=== PATIENT | female | born 1950 | race African-American/Black ===

== ENCOUNTER 2020-01-14 07:00 | Inpatient (IN) | payer MEDICARE ==
[2020-01-14] MEDS ORDERED: ACETAMINOPHEN 325 MG TABLET PO ONE (07:19)
[2020-01-14 07:34] LABS: ABSOLUTE LYMPHOCYTES (AUTO) 0.8 10^3/uL (0.5-4.7); ABSOLUTE MONOCYTES (AUTO) 0.2 10^3/uL (0.1-1.4); ABSOLUTE NEUT (AUTO) 5.8 10^3/uL (1.7-8.2); BASOPHILS % (AUTO) 0.3 % (0-2); EOSINOPHILS % (AUTO) 0.1 % (0-6); HEMATOCRIT 36.2 % (36.0-47.0); HEMOGLOBIN 12.2 g/dL (12.0-15.5); LYMPHOCYTES % (AUTO) 11.6 % (13-45); MEAN CORPUSCULAR HEMOGLOBIN 29.5 pg (27.0-33.4); MEAN CORPUSCULAR HGB CONC 33.9 g/dL (32.0-36.0); MEAN CORPUSCULAR VOLUME 87 fl (80-97); MONOCYTES % (AUTO) 3.6 % (3-13); PLATELET COUNT 280 10^3/uL (150-450); RED BLOOD COUNT 4.15 10^6/uL (3.72-5.28); RED CELL DISTRIBUTION WIDTH 14.6 % (11.5-14.0); SEGMENTED NEUTROPHILS % (AUTO) 84.4 % (42-78); TOTAL CELLS COUNTED % (AUTO) 100 %; VENOUS BLOOD BASE EXCESS -1.3 mmol/L; VENOUS BLOOD HCO3 22.3 mmol/L (20-32); VENOUS BLOOD PCO2 33.8 mmHg (35-63); VENOUS BLOOD PH 7.44 (7.30-7.42); WHITE BLOOD COUNT 6.9 10^3/uL (4.0-10.5)
[2020-01-14 07:39] LABS: INTERNATIONAL RATION (INR) 1.03; PROTHROMBIN TIME 13.7 SEC (11.4-15.4)
[2020-01-14 07:53] LABS: ALBUMIN 4.1 g/dL (3.5-5.0); ALKALINE PHOSPHATASE 96 U/L (38-126); ANION GAP 14 (5-19); ASPARTATE AMINO TRANSFERASE 60 U/L (14-36); BILIRUBIN,DIRECT 0.6 mg/dL (0.0-0.4); BILIRUBIN,TOTAL 1.5 mg/dL (0.2-1.3); BLOOD UREA NITROGEN 32 mg/dL (7-20); CALCIUM 9.2 mg/dL (8.4-10.2); CARBON DIOXIDE 26 mmol/L (22-30); CHLORIDE 103 mmol/L (98-107); GLUCOSE 101 mg/dL (75-110); POTASSIUM 4.3 mmol/L (3.6-5.0); TOTAL PROTEIN 7.7 g/dL (6.3-8.2)
--- NOTE | 2020-01-14 08:09 | RADIOLOGY REPORT (SQ) ---
EXAM DESCRIPTION: CHEST SINGLE VIEW IMAGES COMPLETED DATE/TIME: 01/14/2020 7:36 am REASON FOR STUDY: sob fever COMPARISON: Two-view chest 06/06/2013 EXAM PARAMETERS: NUMBER OF VIEWS: One view. TECHNIQUE: Single frontal radiographic view of the chest acquired. RADIATION DOSE: NA LIMITATIONS: None. FINDINGS: LUNGS AND PLEURA: Diffuse left basilar airspace disease worrisome for pneumonia. Right lung grossly clear. No pleural effusion. No pneumothorax. MEDIASTINUM AND HILAR STRUCTURES: No masses. Contour normal. HEART AND VASCULAR STRUCTURES: Heart normal in size. Normal vasculature. BONES: No acute findings. HARDWARE: None in the chest. OTHER: No other significant finding. IMPRESSION: Patchy left basilar airspace disease worrisome for pneumonia TECHNICAL DOCUMENTATION: JOB ID: [id number] 2010 [employer]- All Rights Reserved Reading location - IP/workstation name: [email or web address]
--- NOTE | 2020-01-14 08:12 | ER Document Report ---
ED General - General Chief Complaint: Shortness Of Breath Stated Complaint: SHORTNESS OF BREATH Time Seen by Provider: 01/14/20 07:34 Primary Care Provider: CLEOPATRA BERMUDEZ FNP [Primary Care Provider] - Follow up as needed TRAVEL OUTSIDE OF THE [place] IN LAST 30 DAYS: No - HPI Notes: Patient is a 69-year-old female presents to the emergency department for evaluation of shortness of breath. The patient states that last week she was diagnosed with a left otitis media. She was started on Augmentin. She took 3 doses and did not feel any better, so she was seen again and started on Zithromax and steroids. Patient states her pain is persisted. She is had some cough. She has had some shortness of breath. Her cough has been largely unproductive. She complains of left ear pain, generalized weakness, but no other focal pain. She states she did have some diarrhea yesterday. No anosmia. - Related Data Allergies/Adverse Reactions: No Known Allergies Allergy (Verified 06/05/13 15:34) Home Medications: Zithromax, prednisone, Zofran. Patient is supposed to be taking atenolol, has not taken it lately. Past Medical History - General Information source: Patient - Social History Smoking Status: Never Smoker Frequency of alcohol use: None Drug Abuse: None Family History: Reviewed & Not Pertinent - Past Medical History Cardiac Medical History: Reports: Hx Hypercholesterolemia, Hx Hypertension Past Surgical History: Reports: None - Immunizations Hx Diphtheria, Pertussis, Tetanus Vaccination: Yes Review of Systems - Review of Systems Constitutional: See HPI EENT: See HPI Cardiovascular: No symptoms reported Respiratory: See HPI Gastrointestinal: See HPI Genitourinary: No symptoms reported Musculoskeletal: No symptoms reported Skin: No symptoms reported Neurological/Psychological: No symptoms reported Physical Exam - Vital signs Vitals: Temp 101.3 F H 01/14/20 07:00 - Notes Notes: This is a 69-year-old female who appears her stated age, in a moderate amount of distress. She is tachypneic, warm to the touch. Vital signs reviewed, please refer to chart. Head is normocephalic, atraumatic. Pupils equal round, reactive to light. Bilateral TMs are noted to be mildly erythematous without large effusion. Neck is supple without meningismus. Heart is regular rate and rhythm. Lungs reveal crackles in the bases, no wheezes or rhonchi appreciated. Abdomen is soft, nontender, normoactive bowel sounds throughout. Extremities without cyanosis, clubbing. Posterior calves are nontender. Peripheral pulses are equal. Skin is hot and dry. Patient is awake, alert, neurological exam is nonfocal. Course - Re-evaluation Re-evalutation: 01/14/20 08:12 Patient presents to the emergency department for evaluation. She is found to be febrile as well as hypoxic, with an O2 sat of 85% on room air. She is placed on oxygen per nasal cannula. IV is established, blood work is obtained. Chest x- ray ordered. I also ordered IV fluids at a sepsis criteria rate. Patient was given Tylenol for her fever. She is currently stable, we will continue to m onitor. - Vital Signs Vital signs: Temp Pulse Resp BP Pulse Ox 101.3 F H 24 H 172/57 H 97 01/14/20 07:04 01/14/20 08:01 01/14/20 08:01 01/14/20 08:01 - Laboratory Result Diagrams: 01/14/20 07:15 01/14/20 07:15 Laboratory results interpreted by me: 01/14/20 01/14/20 01/14/20 07:15 07:15 07:15 RDW 14.6 H Lymph % (Auto) 11.6 L Seg Neutrophils % 84.4 H VBG pH 7.44 H VBG pCO2 33.8 L BUN 32 H Creatinine 1.34 H Est GFR ( Amer) 47 L Est GFR (MDRD) Non-Af 39 L Total Bilirubin 1.5 H Direct Bilirubin 0.6 H AST 60 H Urine Protein Urine Ketones Urine Blood Leukocyte Esterase Rfl 01/14/20 07:48 RDW Lymph % (Auto) Seg Neutrophils % VBG pH VBG pCO2 BUN Creatinine Est GFR ( Amer) Est GFR (MDRD) Non-Af Total Bilirubin Direct Bilirubin AST Urine Protein 100 H Urine Ketones 20 H Urine Blood MODERATE H Leukocyte Esterase Rfl SMALL H - Diagnostic Test Radiology reviewed: Image reviewed Discharge - Discharge Clinical Impression: Person under investigation for COVID-19 Fever Qualifiers: Encounter type: initial encounter Left lower lobe pneumonia Qualifiers: Pneumonia type: due to unspecified organism Qualified Code(s): J18.9 - Pneumonia, unspecified organism Condition: Stable Disposition: ADMITTED INPATIENT Admitting Provider: Wali (Hospitalist) - Kristina Dewitt NP Unit Admitted: IMCU Referrals: CLEOPATRA BERMUDEZ FNP [Primary Care Provider] - Follow up as needed
[2020-01-14 08:33] LABS: APPEARANCE,URINE CLOUDY; BILIRUBIN,URINE NEGATIVE (NEGATIVE); COLOR,URINE YELLOW; GLUCOSE, URINE NEGATIVE (NEGATIVE); KETONES,URINE 20 mg/dL (NEGATIVE); PROTEIN,URINE 100 mg/dL (NEGATIVE); URINE SPECIFIC GRAVITY 1.018; UROBILINOGEN,URINE NEGATIVE mg/dL (<2.0)
[2020-01-14] MEDS: RINGERS SOLUTION,LACTATED 1,000 ML IV PRN ×2 (08:40→09:45)
[2020-01-14] MEDS ORDERED: LEVOFLOXACIN 750 MG/D5W RTU 750 MG/150 ML RTUPB IV ONE (08:58)
[2020-01-14] MEDS ORDERED: ALBUTEROL SULFATE 0.083% NEB 2.5 MG/3 ML AMPUL NEB PRN (09:49)
[2020-01-14] MEDS ORDERED: ENOXAPARIN SODIUM INJ 40 MG/0.4 ML DISP.SYRIN SUBCUT SCH (10:00)
[2020-01-14 10:23] LABS: A TYPE INFLUENZA AG NEGATIVE (NEGATIVE); B INFLUENZA AG NEGATIVE (NEGATIVE)
[2020-01-14] MEDS: ASPIRIN 81 MG TABLET, ENT COATED PO SCH (10:31)
[2020-01-14] MEDS: GUAIFENESIN 600 MG TABLET.SA PO SCH ×2 (10:31→21:18)
[2020-01-14] MEDS: ASCORBIC ACID 500 MG TABLET PO SCH ×2 (10:31→17:21)
[2020-01-14] MEDS: CHOLECALCIFEROL (D3) 1,000 UNIT (25 MCG) TABLET PO SCH (10:32)
[2020-01-14] MEDS: FAMOTIDINE 20 MG TABLET PO SCH ×2 (10:32→21:18)
[2020-01-14] MEDS: ZINC SULFATE 220 MG CAPSULE PO SCH (10:32)
[2020-01-14 12:30] LABS: INTERNATIONAL RATION (INR) 1.08; PROTHROMBIN TIME 14.2 SEC (11.4-15.4)
[2020-01-14 12:33] LABS: D-DIMER 1.01 ug/mL (0.00-0.50)
[2020-01-14 13:00] LABS: C-REACTIVE PROTEIN 184.4 mg/L (<10.0)
[2020-01-14] MEDS ORDERED: HYDRALAZINE HCL 10 MG TABLET PO PRN (15:41)
--- NOTE | 2020-01-14 15:46 | PDOC H&P ---
History of Present Illness Admission Date/PCP: 01/14/20 09:39 SUSANNA RICHMOND Patient complains of: dyspnea History of Present Illness: NIRMALA STEINBERG is a 69 year old female with a past medical history significant for hypertension, hyperlipidemia, and obesity who presented to the emergency department today via EMS for complaint of sudden onset shortness of breath. Per EMS, the patient was found to be hypoxic with an oxygen saturation in the mid 70s on room air. Patient was recently seen by her primary care provider for initial complaint of left ear pain (now resolved). She was initially placed on amoxicillin but then changed to azithromycin after pain persisted. She has completed a full Z-Kvng. Patient denies fevers at home. She does admit to fatigue but otherwise stated that she felt well until last night when she had a sudden onset of shortness of breath. Evaluation in the emergency department revealed (101.3), hypertension, tachypnea, and hypoxia. CBC unremarkable, chemistry revealed mild acute kidney injury and mildly elevated LFTs, urinalysis revealed proteinuria but without evidence of UTI. Influenza negative. D-dimer elevated 1.01, ferritin 299, CRP 184. Chest x-ray demonstrated patchy left basilar airspace disease worrisome for pneumonia. Patient was provided Tylenol LR bolus, and Levaquin. She is referred to the hospitalist service for further evaluation and management of the above-stated complaints and findings. Past Medical History Cardiac Medical History: Reports: Hyperlipidema, Hypertension Denies: Coronary Artery Disease, Myocardial Infarction Pulmonary Medical History: Reports: None EENT Medical History: Reports: None Neurological Medical History: Reports: None Endocrine Medical History: Reports: Obesity Denies: Diabetes Mellitus Type 2, Hypothyroidism Renal/ Medical History: Reports: None Malignancy Medical History: Reports: None GI Medical History: Reports: None Musculoskeltal Medical History: Reports: None Skin Medical History: Reports: None Psychiatric Medical History: Reports: None Denies: Depression Traumatic Medical History: Reports: None Hematology: Reports: None Infectious Medical History: Reports: None Past Surgical History Past Surgical History: Reports: None Social History Information Source: Patient Lives with: Family Smoking Status: Never Smoker Frequency of Alcohol Use: None Hx Recreational Drug Use: No Drugs: None Hx Prescription Drug Abuse: No - Advance Directive Resuscitation Status: Full Code Family History Family History: Reviewed & Not Pertinent Parental Family History Reviewed: Yes Children Family History Reviewed: Yes Sibling(s) Family History Reviewed.: Yes Medication/Allergy Home Medications: Atenolol [Tenormin 50 mg Tablet] 50 mg PO DAILY 03/07/13 Hydrochlorothiazide 25 each PO DAILY 03/07/13 Amoxicillin/Potassium Clav [Augmentin 875-125 Tablet] 1 tab PO Q12 01/14/20 Azithromycin [Zithromax 250 mg Tablet] 250 mg PO ASDIR PRN 01/14/20 Ondansetron [Zofran Odt 4 mg Tablet] 4 mg PO Q8 01/14/20 Prednisone [Deltasone 20 mg Tablet] 20 mg PO ASDIR PRN 01/14/20 Rosuvastatin Calcium [Crestor] 20 mg PO DAILY 01/14/20 Allergies/Adverse Reactions: No Known Allergies Allergy (Verified 06/05/13 15:34) Review of Systems Constitutional: PRESENT: fatigue. ABSENT: chills, fever(s), headache(s), weight gain, weight loss Eyes: ABSENT: visual disturbances Ears: PRESENT: as per HPI. ABSENT: hearing changes Cardiovascular: ABSENT: chest pain, dyspnea on exertion, edema, orthropnea, palpitations Respiratory: PRESENT: cough - Nonproductive, dyspnea. ABSENT: hemoptysis Gastrointestinal: PRESENT: diarrhea. ABSENT: abdominal pain, constipation, hematemesis, hematochezia, nausea, vomiting Genitourinary: ABSENT: dysuria, hematuria Musculoskeletal: ABSENT: joint swelling Integumentary: ABSENT: rash, wounds Neurological: ABSENT: abnormal gait, abnormal speech, confusion, dizziness, focal weakness, syncope Psychiatric: ABSENT: anxiety, depression, homidical ideation, suicidal ideation Endocrine: ABSENT: cold intolerance, heat intolerance, polydipsia, polyuria Hematologic/Lymphatic: ABSENT: easy bleeding, easy bruising Physical Exam Vital Signs: Temp Pulse Resp BP Pulse Ox 98.2 F 75 16 161/64 H 97 01/14/20 11:49 01/14/20 12:19 01/14/20 12:19 01/14/20 11:49 01/14/20 12:19 Pulse Oximeter Continuous Start: 01/14/20 09:49 Freq: RTQ4 Status: Active Protocol: Document 01/14/20 12:00 LDA (Rec: 01/14/20 12:58 LDA [id number]) Pulse Oximetry Assessment Oxygen Saturation (92-100) 97 Oxygen Flow Rate (L/min) 2 Oxygen Delivery Method Nasal Cannula Fraction of Inspired Oxygen (FIO2) 28 Equipment Usage Initial Set Up Continuous Pulse Oximeter 24 Hour Charge Charge Now Continuous SpO2 Machine # 2 Intake & Output 01/13/20 01/14/20 01/15/20 06:59 06:59 06:59 Intake Total 2150 Balance 2150 Weight 66.6 kg General appearance: PRESENT: no acute distress, cooperative, well-developed, well-nourished - Overweight, other - Acutely ill-appearing Head exam: PRESENT: atraumatic, normocephalic Eye exam: PRESENT: conjunctiva pink, EOMI, PERRLA. ABSENT: scleral icterus Mouth exam: PRESENT: moist, tongue midline Respiratory exam: PRESENT: rhonchi - Left lower lung field, symmetrical, unlabored, other - Supplemental oxygen via nasal cannula. ABSENT: rales, wheezes Cardiovascular exam: PRESENT: RRR, +S1, +S2. ABSENT: diastolic murmur, rubs, systolic murmur Pulses: PRESENT: normal dorsalis pedis pul Vascular exam: PRESENT: normal capillary refill GI/Abdominal exam: PRESENT: normal bowel sounds, soft. ABSENT: distended, guarding, mass, organolmegaly, rebound, tenderness Rectal exam: PRESENT: deferred Extremities exam: PRESENT: full ROM. ABSENT: calf tenderness, clubbing, pedal edema Musculoskeletal exam: PRESENT: ambulatory Neurological exam: PRESENT: alert, awake, oriented to person, oriented to place, oriented to time, oriented to situation, CN II-XII grossly intact. ABSENT: motor sensory deficit Psychiatric exam: PRESENT: appropriate affect, normal mood. ABSENT: homicidal ideation, suicidal ideation Skin exam: PRESENT: dry, intact, warm. ABSENT: cyanosis, rash Results Laboratory Results: 01/14/20 07:15 01/14/20 07:15 01/14/20 01/14/20 01/14/20 07:15 07:15 07:15 WBC 6.9 RBC 4.15 Hgb 12.2 Hct 36.2 MCV 87 MCH 29.5 MCHC 33.9 RDW 14.6 H Plt Count 280 Seg Neutrophils % 84.4 H VBG pH 7.44 H VBG pCO2 33.8 L VBG HCO3 22.3 VBG Base Excess -1.3 Sodium 143.1 Potassium 4.3 Chloride 103 Carbon Dioxide 26 Anion Gap 14 BUN 32 H Creatinine 1.34 H Est GFR ( Amer) 47 L Glucose 101 Lactic Acid Calcium 9.2 Ferritin Total Bilirubin 1.5 H AST 60 H Alkaline Phosphatase 96 C-Reactive Protein Total Protein 7.7 Albumin 4.1 Urine Color Urine Appearance Urine pH Ur Specific [place] Urine Protein Urine Glucose (UA) Urine Ketones Urine Blood Urine RBC (Auto) 01/14/20 01/14/20 01/14/20 07:15 07:48 10:13 WBC RBC Hgb Hct MCV MCH MCHC RDW Plt Count Seg Neutrophils % VBG pH VBG pCO2 VBG HCO3 VBG Base Excess Sodium Potassium Chloride Carbon Dioxide Anion Gap BUN Creatinine Est GFR ( Amer) Glucose Lactic Acid 1.2 1.0 Calcium Ferritin Total Bilirubin AST Alkaline Phosphatase C-Reactive Protein Total Protein Albumin Urine Color YELLOW Urine Appearance CLOUDY Urine pH 5.0 Ur Specific [place] 1.018 Urine Protein 100 H Urine Glucose (UA) NEGATIVE Urine Ketones 20 H Urine Blood MODERATE H Urine RBC (Auto) 7 01/14/20 01/14/20 11:58 14:20 WBC RBC Hgb Hct MCV MCH MCHC RDW Plt Count Seg Neutrophils % VBG pH VBG pCO2 VBG HCO3 VBG Base Excess Sodium Potassium Chloride Carbon Dioxide Anion Gap BUN Creatinine Est GFR ( Amer) Glucose Lactic Acid 1.1 Calcium Ferritin 299.00 H Total Bilirubin AST Alkaline Phosphatase C-Reactive Protein 184.4 H Total Protein Albumin Urine Color Urine Appearance Urine pH Ur Specific [place] Urine Protein Urine Glucose (UA) Urine Ketones Urine Blood Urine RBC (Auto) Impressions: Chest X-Ray 01/14/20 07:18 IMPRESSION: Patchy left basilar airspace disease worrisome for pneumonia Assessment and Plan - Diagnosis (1) Left lower lobe pneumonia Qualifiers: Pneumonia type: due to unspecified organism Qualified Code(s): J18.9 - Pneumonia, unspecified organism Is this a current diagnosis for this admission?: Yes Plan: Blood cultures pending. Sputum cultures pending Influenza negative. Covid pending. Patient is provided supplemental oxygen as needed maintain saturations greater than 89%. Patient is empirically placed on Levaquin. Recent completed course of azithromycin. Scheduled and as needed nebulizer treatments. He is placed on Robitussin as needed. Pulmonary toilet is encouraged with incentive spirometer, flutter valve, early ambulation. (2) Person under investigation for COVID-19 Is this a current diagnosis for this admission?: Yes Plan: We will obtain COVID testing. Influenza negative. D-dimer, ferritin, and CRP are negative Placed on full dose Lovenox following d-dimer results. Provide supplemental oxygen as needed maintain saturations greater than 89%. As needed nebulizer treatments. Completed Z-Kvng as outpatient prior to admission. Consider remdesivir or convalescent plasma pending Covid testing. Zinc, vitamin D, vitamin C, and melatonin supplementation. Encourage pulmonary toilet. Isolation precautions. (3) Acute respiratory failure with hypoxia Is this a current diagnosis for this admission?: Yes Plan: Secondary to #1 & 2 Management as above. (4) Hypertension Is this a current diagnosis for this admission?: Yes Plan: Continue home dose antihypertensives. PO Hydralazine as needed for BP control. Cardiac diet. (5) Hyperlipidemia Is this a current diagnosis for this admission?: Yes Plan: Home dose statin Cardiac diet. - Time Time Spent with patient: 35 or more minutes Medications reviewed and adjusted accordingly: Yes Anticipated Discharge Disposition: Home, Self Care Anticipated Discharge Timeframe: within 72 hours
--- NOTE | 2020-01-14 16:13 | EKG REPORT ---
SEVERITY:- ABNORMAL ECG - SINUS RHYTHM LEFT VENTRICULAR HYPERTROPHY : Confirmed by: Eric Ricketts MD 14-Jan-2020 16:13:15
[2020-01-14] MEDS: ATORVASTATIN CALCIUM 40 MG TABLET PO SCH (21:18)
[2020-01-14] MEDS: ENOXAPARIN SODIUM INJ 80 MG/0.8 ML DISP.SYRIN SUBCUT SCH (21:18)
[2020-01-14] MEDS: ACETAMINOPHEN 325 MG TABLET PO PRN (23:14)
[2020-01-15 09:20] LABS: HEMATOCRIT 38.6 % (36.0-47.0); HEMOGLOBIN 13.2 g/dL (12.0-15.5); MEAN CORPUSCULAR HEMOGLOBIN 29.7 pg (27.0-33.4); MEAN CORPUSCULAR HGB CONC 34.2 g/dL (32.0-36.0); MEAN CORPUSCULAR VOLUME 87 fl (80-97); PLATELET COUNT 253 10^3/uL (150-450); RED BLOOD COUNT 4.45 10^6/uL (3.72-5.28); RED CELL DISTRIBUTION WIDTH 14.5 % (11.5-14.0); WHITE BLOOD COUNT 10.2 10^3/uL (4.0-10.5)
[2020-01-15 09:26] LABS: ANION GAP 14 (5-19); BLOOD UREA NITROGEN 21 mg/dL (7-20); CALCIUM 9.2 mg/dL (8.4-10.2); CARBON DIOXIDE 28 mmol/L (22-30); CHLORIDE 102 mmol/L (98-107); GLUCOSE 96 mg/dL (75-110); POTASSIUM 3.8 mmol/L (3.6-5.0)
[2020-01-15] MEDS ORDERED: (PENDING PHARMACY ID) (Rosuvastatin Calcium [Crestor] 20 MG) PO SCH (10:00)
[2020-01-15] MEDS: ASPIRIN 81 MG TABLET, ENT COATED PO SCH (10:32)
[2020-01-15] MEDS: ENOXAPARIN SODIUM INJ 80 MG/0.8 ML DISP.SYRIN SUBCUT SCH ×2 (10:32→21:06)
[2020-01-15] MEDS: GUAIFENESIN 600 MG TABLET.SA PO SCH ×2 (10:32→21:06)
[2020-01-15] MEDS: HYDROCHLOROTHIAZIDE 25 MG TABLET PO SCH (10:32)
[2020-01-15] MEDS: CHOLECALCIFEROL (D3) 1,000 UNIT (25 MCG) TABLET PO SCH (10:32)
[2020-01-15] MEDS: ATENOLOL 50 MG TABLET PO SCH (10:32)
[2020-01-15] MEDS: FAMOTIDINE 20 MG TABLET PO SCH ×2 (10:32→21:06)
[2020-01-15] MEDS: ZINC SULFATE 220 MG CAPSULE PO SCH (10:32)
[2020-01-15] MEDS: ASCORBIC ACID 500 MG TABLET PO SCH ×2 (10:32→17:14)
[2020-01-15] MEDS: LEVOFLOXACIN 750 MG TABLET PO SCH (10:33)
[2020-01-15] MEDS ORDERED: GUAIFENESIN/D-METHORPHAN (200-20 MG) SYRUP 10 ML PO PRN (12:15)
--- NOTE | 2020-01-15 12:16 | PDOC PROGRESS REPORT ---
Subjective Progress Note for:: 01/15/20 Subjective:: NIRMALA STEINBERG is a 69 year old female with a past medical history significant for hypertension, hyperlipidemia, and obesity who was admitted 01/14/2020 with acute respiratory failure with hypoxia secondary to left lower lobe pneumonia and suspected COVID-19. Patient was seen on morning rounds. She is found resting in bed, comfortably, on supplemental oxygen at 3 L/min; she is not home O2 dependent. She was assisted up to the bedside commode and found to become severely dyspneic with a respiratory rate increasing from 18 to mid 30s with a desaturation from 97% to 88 a productive cough. She denies pleuritic chest pain. T-max 102.9/24 hours. She otherwise denies chest pain, palpitations, abdominal pain, nausea and vomiting. She has had frequent loose stools. She has no other questions or concerns at this time. No concerns per nursing. Reason For Visit: PNEUMONIA Physical Exam Vital Signs: Temp Pulse Resp BP Pulse Ox 100.6 F H 72 16 121/65 97 01/15/20 11:18 01/15/20 11:18 01/15/20 11:18 01/15/20 11:18 01/15/20 11:18 Pulse Oximeter Continuous Start: 01/14/20 09:49 Freq: RTQ4 Status: Active Protocol: Document 01/15/20 11:05 [facility] (Rec: 01/15/20 11:05 [facility] [email or web address]) Pulse Oximetry Assessment Oxygen Saturation (92-100) 96 Oxygen Flow Rate (L/min) 3 Oxygen Delivery Method Nasal Cannula Equipment Usage Equipment in Use Continuous SpO2 Machine # 2 Intake & Output 01/14/20 01/15/20 01/16/20 06:59 06:59 06:59 Intake Total 2150 Balance 2150 Weight 68 kg General appearance: PRESENT: no acute distress, cooperative, well-developed, well-nourished, other - Acutely ill-appearing Head exam: PRESENT: atraumatic, normocephalic Eye exam: PRESENT: conjunctiva pink, EOMI, PERRLA. ABSENT: scleral icterus Mouth exam: PRESENT: moist, tongue midline Respiratory exam: PRESENT: rhonchi, symmetrical, tachypnea, unlabored, other - Supplemental oxygen by nasal cannula. ABSENT: rales, wheezes Cardiovascular exam: PRESENT: RRR. ABSENT: diastolic murmur, rubs, systolic murmur Vascular exam: PRESENT: normal capillary refill Extremities exam: PRESENT: full ROM. ABSENT: calf tenderness, clubbing, pedal edema Musculoskeletal exam: PRESENT: ambulatory Neurological exam: PRESENT: alert, awake, oriented to person, oriented to place, oriented to time, oriented to situation, CN II-XII grossly intact. ABSENT: motor sensory deficit Psychiatric exam: PRESENT: appropriate affect, normal mood. ABSENT: homicidal ideation, suicidal ideation Skin exam: PRESENT: dry, intact, warm. ABSENT: cyanosis, rash Results Laboratory Results: 01/15/20 08:49 01/15/20 08:49 01/14/20 01/14/20 01/15/20 11:58 14:20 08:49 WBC 10.2 RBC 4.45 Hgb 13.2 Hct 38.6 MCV 87 MCH 29.7 MCHC 34.2 RDW 14.5 H Plt Count 253 Sodium Potassium Chloride Carbon Dioxide Anion Gap BUN Creatinine Est GFR ( Amer) Glucose Lactic Acid 1.1 Calcium Ferritin 299.00 H C-Reactive Protein 184.4 H 01/15/20 08:49 WBC RBC Hgb Hct MCV MCH MCHC RDW Plt Count Sodium 143.5 Potassium 3.8 Chloride 102 Carbon Dioxide 28 Anion Gap 14 BUN 21 H Creatinine 0.93 Est GFR ( Amer) > 60 Glucose 96 Lactic Acid Calcium 9.2 Ferritin C-Reactive Protein Impressions: Chest X-Ray 01/14/20 07:18 IMPRESSION: Patchy left basilar airspace disease worrisome for pneumonia Assessment and Plan - Diagnosis (1) Left lower lobe pneumonia Qualifiers: Pneumonia type: due to unspecified organism Qualified Code(s): J18.9 - Pneumonia, unspecified organism Is this a current diagnosis for this admission?: Yes Plan: Blood cultures pending. Sputum cultures pending Influenza negative. Covid pending. Patient is provided supplemental oxygen as needed maintain saturations greater than 89%. Patient is empirically placed on Levaquin. Recently completed course of azithromycin. Scheduled and as needed nebulizer treatments. She is placed on Robitussin as needed. Pulmonary toilet is encouraged with incentive spirometer, flutter valve, early ambulation. (2) Person under investigation for COVID-19 Is this a current diagnosis for this admission?: Yes Plan: We will obtain COVID testing. Influenza negative. D-dimer, ferritin, and CRP are negative Placed on full dose Lovenox following d-dimer results. Provide supplemental oxygen as needed maintain saturations greater than 89%. As needed nebulizer treatments. Completed Z-Kvng as outpatient prior to admission. Consider remdesivir or convalescent plasma pending Covid testing. Zinc, vitamin D, vitamin C, and melatonin supplementation. Encourage pulmonary toilet. Isolation precautions. (3) Acute respiratory failure with hypoxia Is this a current diagnosis for this admission?: Yes Plan: Secondary to #1 & 2 Management as above. (4) Hypertension Is this a current diagnosis for this admission?: Yes Plan: Continue home dose antihypertensives. PO Hydralazine as needed for BP control. Cardiac diet. (5) Hyperlipidemia Is this a current diagnosis for this admission?: Yes Plan: Home dose statin Cardiac diet. - Time Time Spent with patient: 25-34 minutes Medications reviewed and adjusted accordingly: Yes Anticipated Discharge Disposition: Home, Self Care Anticipated Discharge Timeframe: >72 hrs
[2020-01-15] MEDS: ALBUTEROL SULFATE 0.083% NEB 2.5 MG/3 ML AMPUL NEB SCH ×2 (13:45→20:59)
[2020-01-15] MEDS: ATORVASTATIN CALCIUM 40 MG TABLET PO SCH (21:06)
[2020-01-16] MEDS: ALBUTEROL SULFATE 0.083% NEB 2.5 MG/3 ML AMPUL NEB SCH ×4 (01:57→20:24)
[2020-01-16 09:30] LABS: HEMATOCRIT 39.2 % (36.0-47.0); HEMOGLOBIN 13.2 g/dL (12.0-15.5); MEAN CORPUSCULAR HEMOGLOBIN 29.6 pg (27.0-33.4); MEAN CORPUSCULAR HGB CONC 33.6 g/dL (32.0-36.0); MEAN CORPUSCULAR VOLUME 88 fl (80-97); PLATELET COUNT 258 10^3/uL (150-450); RED BLOOD COUNT 4.47 10^6/uL (3.72-5.28); RED CELL DISTRIBUTION WIDTH 14.8 % (11.5-14.0); WHITE BLOOD COUNT 7.4 10^3/uL (4.0-10.5)
[2020-01-16 09:45] LABS: ANION GAP 13 (5-19); BLOOD UREA NITROGEN 23 mg/dL (7-20); CALCIUM 9.2 mg/dL (8.4-10.2); CARBON DIOXIDE 25 mmol/L (22-30); CHLORIDE 103 mmol/L (98-107); GLUCOSE 75 mg/dL (75-110); POTASSIUM 4.1 mmol/L (3.6-5.0)
[2020-01-16] MEDS: ENOXAPARIN SODIUM INJ 80 MG/0.8 ML DISP.SYRIN SUBCUT SCH ×2 (10:40→21:27)
[2020-01-16] MEDS: ZINC SULFATE 220 MG CAPSULE PO SCH (10:40)
[2020-01-16] MEDS: GUAIFENESIN 600 MG TABLET.SA PO SCH ×3 (10:40→21:27)
[2020-01-16] MEDS: HYDROCHLOROTHIAZIDE 25 MG TABLET PO SCH ×2 (10:40→10:55)
[2020-01-16] MEDS: LEVOFLOXACIN 750 MG TABLET PO SCH (10:40)
[2020-01-16] MEDS: ASCORBIC ACID 500 MG TABLET PO SCH ×2 (10:40→17:34)
[2020-01-16] MEDS: FAMOTIDINE 20 MG TABLET PO SCH ×2 (10:40→21:27)
[2020-01-16] MEDS: ASPIRIN 81 MG TABLET, ENT COATED PO SCH (10:40)
[2020-01-16] MEDS: ATENOLOL 50 MG TABLET PO SCH (10:40)
[2020-01-16] MEDS: CHOLECALCIFEROL (D3) 1,000 UNIT (25 MCG) TABLET PO SCH (10:42)
[2020-01-16] MEDS ORDERED: PHARMACY COMMUNICATION ORDER MC NR (13:30)
--- NOTE | 2020-01-16 13:35 | PDOC PROGRESS REPORT ---
Subjective Progress Note for:: 01/16/20 Subjective:: NIRMALA STEINBERG is a 69 year old female with a past medical history significant for hypertension, hyperlipidemia, and obesity who was admitted 01/14/2020 with acute respiratory failure with hypoxia secondary to left lower lobe pneumonia and suspected COVID-19. Patient was seen on morning rounds. She is found resting in bed, comfortably, on supplemental oxygen at 3 L/min; she is not home O2 dependent. She has 2-3 word tachypnea but is maintaining oxygen saturations well. She reports continued nonproductive cough, increased fatigue, general sense of unwellness. Denies pleuritic chest pain. T-max 100.6/24 hrs; 102.9/48 hours. She otherwise denies chest pain, palpitations, abdominal pain, nausea and vomiting. She has had loose stools; somewhat decreased. She has no other questions or concerns at this time. No concerns per nursing. Reason For Visit: PNEUMONIA Physical Exam Vital Signs: Temp Pulse Resp BP Pulse Ox 97.6 F 72 19 134/55 H 96 01/16/20 12:06 01/16/20 12:06 01/16/20 12:06 01/16/20 12:06 01/16/20 12:06 Pulse Oximeter Continuous Start: 01/14/20 09:49 Freq: RTQ4 Status: Active Protocol: Document 01/16/20 07:41 [facility] (Rec: 01/16/20 10:28 [facility] [id number]) Pulse Oximetry Assessment Oxygen Saturation (92-100) 97 Oxygen Flow Rate (L/min) 4 Oxygen Delivery Method Nasal Cannula Equipment Usage Equipment in Use Continuous SpO2 Machine # 2 Intake & Output 01/15/20 01/16/20 01/17/20 06:59 06:59 06:59 Intake Total 2150 740 Output Total 400 Balance 2150 340 Weight 68 kg 68.2 kg General appearance: PRESENT: no acute distress, cooperative, obese, well- developed, well-nourished, other - Acutely ill-appearing Head exam: PRESENT: atraumatic, normocephalic Eye exam: PRESENT: conjunctiva pink, EOMI, PERRLA. ABSENT: scleral icterus Mouth exam: PRESENT: moist, tongue midline Respiratory exam: PRESENT: clear to auscultation jimenez, symmetrical, tachypnea, other - Supplemental oxygen by nasal cannula. ABSENT: rales, rhonchi, wheezes Cardiovascular exam: PRESENT: RRR. ABSENT: diastolic murmur, rubs, systolic murmur Vascular exam: PRESENT: normal capillary refill Extremities exam: PRESENT: full ROM. ABSENT: calf tenderness, clubbing, pedal edema Musculoskeletal exam: PRESENT: ambulatory Neurological exam: PRESENT: alert, awake, oriented to person, oriented to place, oriented to time, oriented to situation, CN II-XII grossly intact. ABSENT: motor sensory deficit Psychiatric exam: PRESENT: appropriate affect, normal mood. ABSENT: homicidal ideation, suicidal ideation Skin exam: PRESENT: dry, intact, warm. ABSENT: cyanosis, rash Results Laboratory Results: 01/16/20 08:14 01/16/20 08:14 01/16/20 01/16/20 08:14 08:14 WBC 7.4 RBC 4.47 Hgb 13.2 Hct 39.2 MCV 88 MCH 29.6 MCHC 33.6 RDW 14.8 H Plt Count 258 Sodium 141.3 Potassium 4.1 Chloride 103 Carbon Dioxide 25 Anion Gap 13 BUN 23 H Creatinine 0.81 Est GFR ( Amer) > 60 Glucose 75 Calcium 9.2 01/14/20 10:13 Sputum Gram Stain - Final 01/14/20 10:13 Sputum Sputum Culture - Final NORMAL RAYMUNDO Impressions: Chest X-Ray 01/14/20 07:18 IMPRESSION: Patchy left basilar airspace disease worrisome for pneumonia Assessment and Plan - Diagnosis (1) COVID-19 Is this a current diagnosis for this admission?: Yes Plan: COVID positive Influenza negative. D-dimer, ferritin, and CRP are all elevated Placed on full dose Lovenox following d-dimer results. Provide supplemental oxygen as needed maintain saturations greater than 89%. As needed nebulizer treatments. Completed Z-Kvng as outpatient prior to admission. Start remdesivir 1 unit convalescent plasma Start dexamethasone Zinc, vitamin D, vitamin C, and melatonin supplementation. Encourage pulmonary toilet. Isolation precautions. (2) Left lower lobe pneumonia Qualifiers: Pneumonia type: due to unspecified organism Qualified Code(s): J18.9 - Pneumonia, unspecified organism Is this a current diagnosis for this admission?: Yes Plan: Blood cultures negative at 48 hours Sputum cultures show normal raymundo Influenza negative. Covid positive Patient is provided supplemental oxygen as needed maintain saturations greater than 89%. Patient was empirically placed on Levaquin; will discontinue as patient is COVID positive. Recently completed course of azithromycin. Scheduled and as needed nebulizer treatments. She is placed on Robitussin as needed. Pulmonary toilet is encouraged with incentive spirometer, flutter valve, early ambulation. (3) Acute respiratory failure with hypoxia Is this a current diagnosis for this admission?: Yes Plan: Secondary to #1 & 2 Management as above. (4) Hypertension Is this a current diagnosis for this admission?: Yes Plan: Continue home dose antihypertensives. PO Hydralazine as needed for BP control. Cardiac diet. (5) Hyperlipidemia Is this a current diagnosis for this admission?: Yes Plan: Home dose statin Cardiac diet. (6) Person under investigation for COVID-19 Is this a current diagnosis for this admission?: Yes Plan: COVID positive - Time Time Spent with patient: 35 or more minutes Medications reviewed and adjusted accordingly: Yes Anticipated Discharge Disposition: Home, Self Care Anticipated Discharge Timeframe: >72 hrs
[2020-01-16] MEDS: DEXAMETHASONE SOD PHOS INJ 10 MG/1 ML VIAL IV SCH (13:50)
[2020-01-16] MEDS ORDERED: REMDESIVIR (EUA) 200 MG in NORMAL SALINE 250 ML IV ONE (16:00)
[2020-01-16 18:16] LABS: HEMATOCRIT 33.6 % (36.0-47.0); HEMOGLOBIN 11.3 g/dL (12.0-15.5); MEAN CORPUSCULAR HEMOGLOBIN 29.1 pg (27.0-33.4); MEAN CORPUSCULAR HGB CONC 33.6 g/dL (32.0-36.0); MEAN CORPUSCULAR VOLUME 87 fl (80-97); PLATELET COUNT 311 10^3/uL (150-450); RED BLOOD COUNT 3.88 10^6/uL (3.72-5.28); RED CELL DISTRIBUTION WIDTH 14.8 % (11.5-14.0); WHITE BLOOD COUNT 7.8 10^3/uL (4.0-10.5)
[2020-01-16 18:31] LABS: ANION GAP 15 (5-19); BLOOD UREA NITROGEN 21 mg/dL (7-20); CARBON DIOXIDE 25 mmol/L (22-30); CHLORIDE 102 mmol/L (98-107); GLUCOSE 103 mg/dL (75-110); POTASSIUM 3.5 mmol/L (3.6-5.0)
[2020-01-16 18:34] LABS: ABSOLUTE LYMPHOCYTES# (MANUAL) 0.6 10^3/uL (0.5-4.7); ABSOLUTE MONOCYTES # (MANUAL) 0.3 10^3/uL (0.1-1.4); BASOPHILS % (MANUAL) 0 % (0-2); EOSINOPHILS % (MANUAL) 0 % (0-6); LYMPHOCYTES % (MANUAL) 7 % (13-45); MONOCYTES % (MANUAL) 4 % (3-13); SEGMENTED NEUTROPHILS % (MAN) 88 % (42-78); TOTAL CELLS COUNTED 100
[2020-01-16 18:35] LABS: ANISOCYTOSIS SLIGHT; OVALOCYTES SLIGHT; PLATELET COMMENT ADEQUATE
[2020-01-16] MEDS ORDERED: NORMAL SALINE 1000 ML 1,000 ML IV PRN (18:36)
[2020-01-16] MEDS: ATORVASTATIN CALCIUM 40 MG TABLET PO SCH (21:27)
[2020-01-17] MEDS: ALBUTEROL SULFATE 0.083% NEB 2.5 MG/3 ML AMPUL NEB SCH ×4 (02:02→19:53)
[2020-01-17] MEDS: HYDROCHLOROTHIAZIDE 25 MG TABLET PO SCH (09:27)
[2020-01-17] MEDS: GUAIFENESIN 600 MG TABLET.SA PO SCH ×2 (09:33→22:17)
[2020-01-17] MEDS: CHOLECALCIFEROL (D3) 1,000 UNIT (25 MCG) TABLET PO SCH (09:33)
[2020-01-17] MEDS: ASCORBIC ACID 500 MG TABLET PO SCH ×2 (09:33→17:30)
[2020-01-17] MEDS: ATENOLOL 50 MG TABLET PO SCH (09:33)
[2020-01-17] MEDS: ENOXAPARIN SODIUM INJ 80 MG/0.8 ML DISP.SYRIN SUBCUT SCH ×2 (09:33→22:00)
[2020-01-17] MEDS: FAMOTIDINE 20 MG TABLET PO SCH ×2 (09:33→22:16)
[2020-01-17] MEDS: ZINC SULFATE 220 MG CAPSULE PO SCH (09:33)
[2020-01-17] MEDS: ASPIRIN 81 MG TABLET, ENT COATED PO SCH (09:33)
[2020-01-17] MEDS: DEXAMETHASONE SOD PHOS INJ 10 MG/1 ML VIAL IV SCH (09:34)
[2020-01-17] MEDS: REMDESIVIR (EUA) 100 MG in NORMAL SALINE 250 ML IV SCH (09:48)
--- NOTE | 2020-01-17 14:23 | PDOC PROGRESS REPORT ---
Subjective Progress Note for:: 01/17/20 Subjective:: NIRMALA STEINBERG is a 69 year old female with a past medical history significant for hypertension, hyperlipidemia, and obesity who was admitted 01/14/2020 with acute respiratory failure with hypoxia secondary to left lower lobe pneumonia and suspected COVID-19. Patient was seen on morning rounds. She is found resting in bed, comfortably, on supplemental oxygen at 3 L/min; she is not home O2 dependent. She remains tachypnic (RR 20-24) but is maintaining oxygen saturations well and speaking full sentences. She reports continued nonproductive cough and fatigue. Though is feeling slight improvement today. Denies pleuritic chest pain. T-max 100.6/48 hrs; afebrile x24 hrs She otherwise denies chest pain, palpitations, abdominal pain, nausea, vomiting, and diarrhea. She has no other questions or concerns at this time. No concerns per nursing. Reason For Visit: PNEUMONIA Physical Exam Vital Signs: Temp Pulse Resp BP Pulse Ox 98.0 F 66 16 143/61 H 99 01/17/20 12:23 01/17/20 14:05 01/17/20 14:05 01/17/20 12:23 01/17/20 14:05 Pulse Oximeter Continuous Start: 01/14/20 09:49 Freq: RTQ4 Status: Active Protocol: Document 01/17/20 11:55 [facility] (Rec: 01/17/20 11:55 [facility] [id number]) Pulse Oximetry Assessment Oxygen Saturation (92-100) 98 Oxygen Flow Rate (L/min) 2 Oxygen Delivery Method Nasal Cannula Equipment Usage Equipment Standby Continuous SpO2 Machine # 2 Intake & Output 01/16/20 01/17/20 01/18/20 06:59 06:59 06:59 Intake Total 740 1110 1465 Output Total 400 Balance 340 1110 1465 Weight 68.2 kg 67.5 kg 67.5 kg General appearance: PRESENT: no acute distress, obese, well-developed, well- nourished Head exam: PRESENT: atraumatic, normocephalic Eye exam: PRESENT: conjunctiva pink, EOMI, PERRLA. ABSENT: scleral icterus Mouth exam: PRESENT: moist, tongue midline Respiratory exam: PRESENT: clear to auscultation jimenez, symmetrical, tachypnea, other - Omental oxygen by nasal cannula. ABSENT: rales, rhonchi, wheezes Cardiovascular exam: PRESENT: RRR. ABSENT: diastolic murmur, rubs, systolic murmur Vascular exam: PRESENT: normal capillary refill Extremities exam: PRESENT: full ROM. ABSENT: calf tenderness, clubbing, pedal edema Musculoskeletal exam: PRESENT: ambulatory Neurological exam: PRESENT: alert, awake, oriented to person, oriented to place, oriented to time, oriented to situation, CN II-XII grossly intact. ABSENT: motor sensory deficit Psychiatric exam: PRESENT: appropriate affect, normal mood. ABSENT: homicidal ideation, suicidal ideation Skin exam: PRESENT: dry, intact, warm. ABSENT: cyanosis, rash Results Laboratory Results: 01/16/20 17:55 01/16/20 17:55 01/16/20 01/16/20 01/16/20 17:55 17:55 17:55 WBC 7.8 RBC 3.88 Hgb 11.3 L Hct 33.6 L MCV 87 MCH 29.1 MCHC 33.6 RDW 14.8 H Plt Count 311 Seg Neutrophils % Not Reportable Sodium 142.1 Potassium 3.5 L Chloride 102 Carbon Dioxide 25 Anion Gap 15 BUN 21 H Creatinine 0.85 Est GFR ( Amer) > 60 Glucose 103 Calcium 9.0 Blood Type A POSITIVE Antibody Screen NEGATIVE Impressions: Chest X-Ray 01/14/20 07:18 IMPRESSION: Patchy left basilar airspace disease worrisome for pneumonia Assessment and Plan - Diagnosis (1) COVID-19 Is this a current diagnosis for this admission?: Yes Plan: COVID positive Influenza negative. D-dimer, ferritin, and CRP are all elevated Placed on full dose Lovenox following d-dimer results. Provide supplemental oxygen as needed maintain saturations greater than 89%. As needed nebulizer treatments. Completed Z-Kvng as outpatient prior to admission. Continue remdesivir Continue dexamethasone Zinc, vitamin D, vitamin C, and melatonin supplementation. Encourage pulmonary toilet. Isolation precautions. 1 unit convalescent plasma ordered; patient now requesting to hold until tomorrow. We did discuss that convalescent plasma is more effective when given earlier in the course of treatment, however, she is requested to wait and see how she feels tomorrow. (2) Left lower lobe pneumonia Qualifiers: Pneumonia type: due to unspecified organism Qualified Code(s): J18.9 - Pneumonia, unspecified organism Is this a current diagnosis for this admission?: Yes Plan: COVID Pneumonia Blood cultures negative at 72 hours Sputum cultures show normal raymundo Influenza negative. Covid positive Patient is provided supplemental oxygen as needed maintain saturations greater than 89%. Patient was empirically placed on Levaquin; have discontinued as patient is COVID positive. Recently completed course of azithromycin. Scheduled and as needed nebulizer treatments. She is placed on Robitussin as needed. Pulmonary toilet is encouraged with incentive spirometer, flutter valve, early ambulation. (3) Acute respiratory failure with hypoxia Is this a current diagnosis for this admission?: Yes Plan: Secondary to #1 & 2 Management as above. (4) Hypertension Is this a current diagnosis for this admission?: Yes Plan: Continue home dose antihypertensives. PO Hydralazine as needed for BP control. Cardiac diet. (5) Hyperlipidemia Is this a current diagnosis for this admission?: Yes Plan: Home dose statin Cardiac diet. (6) Person under investigation for COVID-19 Is this a current diagnosis for this admission?: Yes Plan: COVID positive - Time Time Spent with patient: 35 or more minutes Medications reviewed and adjusted accordingly: Yes Anticipated Discharge Disposition: Home, Self Care Anticipated Discharge Timeframe: >72 hrs
[2020-01-17] MEDS: ATORVASTATIN CALCIUM 40 MG TABLET PO SCH (22:16)
[2020-01-18] MEDS: ALBUTEROL SULFATE 0.083% NEB 2.5 MG/3 ML AMPUL NEB SCH ×4 (02:27→19:55)
[2020-01-18 05:38] LABS: HEMATOCRIT 32.6 % (36.0-47.0); HEMOGLOBIN 11.2 g/dL (12.0-15.5); MEAN CORPUSCULAR HEMOGLOBIN 29.6 pg (27.0-33.4); MEAN CORPUSCULAR HGB CONC 34.5 g/dL (32.0-36.0); MEAN CORPUSCULAR VOLUME 86 fl (80-97); PLATELET COUNT 334 10^3/uL (150-450); RED BLOOD COUNT 3.79 10^6/uL (3.72-5.28); RED CELL DISTRIBUTION WIDTH 14.6 % (11.5-14.0); WHITE BLOOD COUNT 8.4 10^3/uL (4.0-10.5)
[2020-01-18 06:09] LABS: ANION GAP 10 (5-19); BLOOD UREA NITROGEN 28 mg/dL (7-20); CARBON DIOXIDE 26 mmol/L (22-30); CHLORIDE 108 mmol/L (98-107); GLUCOSE 130 mg/dL (75-110); POTASSIUM 3.7 mmol/L (3.6-5.0)
[2020-01-18 06:36] LABS: APPEARANCE,URINE SLIGHTLY-CLOUDY; BILIRUBIN,URINE NEGATIVE (NEGATIVE); COLOR,URINE YELLOW; GLUCOSE, URINE NEGATIVE (NEGATIVE); KETONES,URINE TRACE mg/dL (NEGATIVE); LEUKOCYTE ESTERASE,URINE NEGATIVE (NEGATIVE); NITRITE,URINE NEGATIVE (NEGATIVE); PROTEIN,URINE 100 mg/dL (NEGATIVE); URINE SPECIFIC GRAVITY 1.025; UROBILINOGEN,URINE NEGATIVE mg/dL (<2.0)
[2020-01-18] MEDS: DEXAMETHASONE SOD PHOS INJ 10 MG/1 ML VIAL IV SCH (09:17)
[2020-01-18] MEDS: ASPIRIN 81 MG TABLET, ENT COATED PO SCH (09:17)
[2020-01-18] MEDS: ASCORBIC ACID 500 MG TABLET PO SCH ×2 (09:17→17:04)
[2020-01-18] MEDS: ZINC SULFATE 220 MG CAPSULE PO SCH (09:18)
[2020-01-18] MEDS: HYDROCHLOROTHIAZIDE 25 MG TABLET PO SCH (09:18)
[2020-01-18] MEDS: FAMOTIDINE 20 MG TABLET PO SCH ×2 (09:18→21:06)
[2020-01-18] MEDS: ATENOLOL 50 MG TABLET PO SCH (09:18)
[2020-01-18] MEDS: CHOLECALCIFEROL (D3) 1,000 UNIT (25 MCG) TABLET PO SCH (09:18)
[2020-01-18] MEDS: GUAIFENESIN 600 MG TABLET.SA PO SCH ×2 (09:18→21:06)
[2020-01-18] MEDS: ENOXAPARIN SODIUM INJ 80 MG/0.8 ML DISP.SYRIN SUBCUT SCH ×2 (09:19→21:06)
--- NOTE | 2020-01-18 09:51 | PDOC PROGRESS REPORT ---
Subjective Progress Note for:: 01/18/20 Subjective:: Patient is resting in bed. Still slightly tachypneic but reports that she is feeling better. She is due for convalescent plasma today. She reports that he is beginning to ambulate. She has ambulated to the bathroom and is able to get back to bed but is short of breath. It does take her 3 to 4 minutes to recover. Reason For Visit: PNEUMONIA Physical Exam Vital Signs: Temp Pulse Resp BP Pulse Ox 98.3 F 66 30 H 131/50 H 91 L 01/18/20 07:27 01/18/20 04:38 01/18/20 04:38 01/18/20 04:38 01/18/20 04:38 Pulse Oximeter Continuous Start: 01/14/20 09:49 Freq: RTQ4 Status: Active Protocol: Document 01/18/20 04:05 [facility] (Rec: 01/18/20 04:29 [facility] [id number]) Pulse Oximetry Assessment Equipment Usage Equipment Standby Continuous SpO2 Machine # 2 Intake & Output 01/17/20 01/18/20 01/19/20 06:59 06:59 06:59 Intake Total 1110 2136 Balance 1110 2136 Weight 67.5 kg 65 kg General appearance: PRESENT: cooperative, mild distress, well-developed, well- nourished Head exam: PRESENT: atraumatic, normocephalic, other - Alopecia Ear exam: PRESENT: normal external ear exam. ABSENT: bleeding, drainage Mouth exam: PRESENT: moist, tongue midline Respiratory exam: PRESENT: rales - Velcro rales bilaterally. Lower lobes., symmetrical, unlabored. ABSENT: retraction, rhonchi, tachypnea, wheezes Cardiovascular exam: PRESENT: RRR, +S1, +S2. ABSENT: bradycardia, diastolic murmur, irregular rhythm, systolic murmur, tachycardia GI/Abdominal exam: PRESENT: normal bowel sounds, soft. ABSENT: distended, guarding, tenderness Rectal exam: PRESENT: deferred Gentrourinary exam: ABSENT: indwelling catheter Extremities exam: PRESENT: other - Slight puffiness especially right hand.. ABSENT: pedal edema Musculoskeletal exam: PRESENT: ambulatory, normal inspection. ABSENT: deformity Neurological exam: PRESENT: alert, awake, oriented to person, oriented to place, oriented to time, oriented to situation, CN II-XII grossly intact Psychiatric exam: PRESENT: flat affect. ABSENT: agitated, anxious Focused psych exam: ABSENT: delusional, paranoid, restlessness Skin exam: PRESENT: dry, warm, other - Alopecia. ABSENT: rash Results Laboratory Results: 01/18/20 05:09 01/18/20 05:09 01/18/20 01/18/20 01/18/20 05:09 05:09 05:30 WBC 8.4 RBC 3.79 Hgb 11.2 L Hct 32.6 L MCV 86 MCH 29.6 MCHC 34.5 RDW 14.6 H Plt Count 334 Sodium 143.9 Potassium 3.7 Chloride 108 H Carbon Dioxide 26 Anion Gap 10 BUN 28 H Creatinine 0.83 Est GFR ( Amer) > 60 Glucose 130 H Calcium 9.0 Urine Color YELLOW Urine Appearance SLIGHTLY-CLOUDY Urine pH 6.0 Ur Specific [place] 1.025 Urine Protein 100 H Urine Glucose (UA) NEGATIVE Urine Ketones TRACE H Urine Blood NEGATIVE Urine Nitrite NEGATIVE Ur Leukocyte Esterase NEGATIVE Urine WBC (Auto) 3 Urine RBC (Auto) 2 Impressions: Chest X-Ray 01/14/20 07:18 IMPRESSION: Patchy left basilar airspace disease worrisome for pneumonia Assessment and Plan - Diagnosis (1) COVID-19 Is this a current diagnosis for this admission?: Yes Plan: COVID positive Influenza negative. D-dimer, ferritin, and CRP are all elevated Placed on full dose Lovenox following d-dimer results. Provide supplemental oxygen as needed maintain saturations greater than 89%. As needed nebulizer treatments. Completed Z-Kvng as outpatient prior to admission. Continue remdesivir Continue dexamethasone Zinc, vitamin D, vitamin C, and melatonin supplementation. Encourage pulmonary toilet. Isolation precautions. 1 unit convalescent plasma ordered; patient now requesting to hold until tomorrow. We did discuss that convalescent plasma is more effective when given earlier in the course of treatment, however, she is requested to wait and see how she feels tomorrow. (2) Left lower lobe pneumonia Qualifiers: Pneumonia type: due to unspecified organism Qualified Code(s): J18.9 - Pneumonia, unspecified organism Is this a current diagnosis for this admission?: Yes Plan: COVID Pneumonia Blood cultures negative at 72 hours Sputum cultures show normal raymundo Influenza negative. Covid positive Patient is provided supplemental oxygen as needed maintain saturations greater than 89%. Patient was empirically placed on Levaquin; have discontinued as patient is COVID positive. Recently completed course of azithromycin. Scheduled and as needed nebulizer treatments. She is placed on Robitussin as needed. Pulmonary toilet is encouraged with incentive spirometer, flutter valve, early ambulation. (3) Acute respiratory failure with hypoxia Is this a current diagnosis for this admission?: Yes Plan: Secondary to #1 & 2 Management as above. (4) Hyperlipidemia Is this a current diagnosis for this admission?: Yes Plan: Home dose statin Cardiac diet. (5) Hypertension Is this a current diagnosis for this admission?: Yes Plan: Continue home dose antihypertensives. PO Hydralazine as needed for BP control. Cardiac diet. (6) Person under investigation for COVID-19 Is this a current diagnosis for this admission?: Yes Plan: COVID positive - Plan Summary Summary: 01/18/2020 Covid pneumonia with respiratory failure hypoxia-continues to improve. Will receive convalescent plasma today. She has had azithromycin. Continue s upplements. Completing remdesivir as well. Continue to wean oxygen as tolerated. Fine rales at bases could indicate post Covid changes that will be chronic. Will monitor. Continue current antihypertensive regimen, atorvastatin and cardiac diet. - Time Time Spent with patient: 15-24 minutes Medications reviewed and adjusted accordingly: Yes Anticipated Discharge Disposition: Home with Home Health Anticipated Discharge Timeframe: Unknown
[2020-01-18] MEDS: REMDESIVIR (EUA) 100 MG in NORMAL SALINE 250 ML IV SCH (10:26)
[2020-01-18] MEDS: ATORVASTATIN CALCIUM 40 MG TABLET PO SCH (21:06)
[2020-01-19] MEDS: ACETAMINOPHEN 325 MG TABLET PO PRN (00:57)
[2020-01-19] MEDS: ALBUTEROL SULFATE 0.083% NEB 2.5 MG/3 ML AMPUL NEB SCH ×4 (02:01→19:49)
[2020-01-19 05:43] LABS: HEMATOCRIT 32.5 % (36.0-47.0); MEAN CORPUSCULAR HEMOGLOBIN 29.3 pg (27.0-33.4); MEAN CORPUSCULAR HGB CONC 33.8 g/dL (32.0-36.0); MEAN CORPUSCULAR VOLUME 87 fl (80-97); PLATELET COUNT 337 10^3/uL (150-450); RED BLOOD COUNT 3.74 10^6/uL (3.72-5.28)
[2020-01-19] MEDS: ZINC SULFATE 220 MG CAPSULE PO SCH (11:00)
[2020-01-19] MEDS: HYDROCHLOROTHIAZIDE 25 MG TABLET PO SCH ×2 (11:00→18:15)
[2020-01-19] MEDS: FAMOTIDINE 20 MG TABLET PO SCH ×2 (11:00→21:16)
[2020-01-19] MEDS: ASCORBIC ACID 500 MG TABLET PO SCH ×2 (11:00→18:14)
[2020-01-19] MEDS: ENOXAPARIN SODIUM INJ 80 MG/0.8 ML DISP.SYRIN SUBCUT SCH ×2 (11:00→21:38)
[2020-01-19] MEDS: REMDESIVIR (EUA) 100 MG in NORMAL SALINE 250 ML IV SCH (11:00)
[2020-01-19] MEDS: ASPIRIN 81 MG TABLET, ENT COATED PO SCH (11:01)
[2020-01-19] MEDS: ATENOLOL 50 MG TABLET PO SCH (11:01)
[2020-01-19] MEDS: CHOLECALCIFEROL (D3) 1,000 UNIT (25 MCG) TABLET PO SCH (11:01)
[2020-01-19] MEDS: GUAIFENESIN 600 MG TABLET.SA PO SCH ×2 (11:01→21:16)
[2020-01-19 11:35] LABS: APPEARANCE,URINE SLIGHTLY-CLOUDY; BILIRUBIN,URINE NEGATIVE (NEGATIVE); COLOR,URINE YELLOW; GLUCOSE, URINE NEGATIVE (NEGATIVE); KETONES,URINE NEGATIVE (NEGATIVE); LEUKOCYTE ESTERASE,URINE MODERATE (NEGATIVE); NITRITE,URINE NEGATIVE (NEGATIVE); PROTEIN,URINE 30 mg/dL (NEGATIVE); URINE SPECIFIC GRAVITY 1.017; UROBILINOGEN,URINE NEGATIVE mg/dL (<2.0)
[2020-01-19] MEDS: DEXAMETHASONE SOD PHOS INJ 10 MG/1 ML VIAL IV SCH (12:45)
[2020-01-19] MEDS: REMDESIVIR (EUA) 100 MG in NORMAL SALINE 250 ML IV ONE (16:53)
--- NOTE | 2020-01-19 19:16 | PDOC PROGRESS REPORT ---
Subjective Progress Note for:: 01/19/20 Subjective:: Patient is resting in bed. Still slightly tachypneic but reports that she is feeling better. She is due for convalescent plasma today. She reports that he is beginning to ambulate. She has ambulated to the bathroom and is able to get back to bed but is short of breath. It does take her 3 to 4 minutes to recover. Reason For Visit: PNEUMONIA Physical Exam Vital Signs: Temp Pulse Resp BP Pulse Ox 98.3 F 61 18 149/56 H 94 01/19/20 15:32 01/19/20 15:32 01/19/20 15:32 01/19/20 15:32 01/19/20 16:00 Pulse Oximeter Continuous Start: 01/14/20 09:49 Freq: RTQ4 Status: Active Protocol: Document 01/19/20 16:00 [facility] (Rec: 01/19/20 16:52 [facility] [id number]) Pulse Oximetry Assessment Oxygen Saturation (92-100) 94 Oxygen Flow Rate (L/min) 2 Oxygen Delivery Method Nasal Cannula Equipment Usage Equipment Standby Continuous SpO2 Machine # 2 Intake & Output 01/18/20 01/19/20 01/20/20 06:59 06:59 06:59 Intake Total 2136 1492 0 Output Total 0 Balance 2136 1492 0 Weight 65 kg 64.9 kg 64.9 kg General appearance: PRESENT: cooperative, mild distress, well-developed Head exam: PRESENT: atraumatic, normocephalic, other - Alopecia Respiratory exam: PRESENT: prolonged expiratory phas, rales - Fine rales at bases, symmetrical. ABSENT: rhonchi, tachypnea, wheezes Cardiovascular exam: PRESENT: RRR, +S1, +S2. ABSENT: bradycardia, diastolic murmur, irregular rhythm, systolic murmur, tachycardia GI/Abdominal exam: PRESENT: normal bowel sounds, soft. ABSENT: distended, guarding, tenderness Rectal exam: PRESENT: deferred Gentrourinary exam: ABSENT: indwelling catheter Extremities exam: ABSENT: joint swelling, pedal edema Musculoskeletal exam: PRESENT: ambulatory, normal inspection. ABSENT: def ormity, dislocation Neurological exam: PRESENT: alert, awake, oriented to person, oriented to place, oriented to time, oriented to situation. ABSENT: altered, motor sensory deficit Psychiatric exam: PRESENT: flat affect. ABSENT: agitated, anxious Focused psych exam: ABSENT: delusional, paranoid, restlessness Skin exam: PRESENT: dry, normal color, warm. ABSENT: rash Results Laboratory Results: 01/19/20 05:11 01/18/20 05:09 01/19/20 01/19/20 05:11 11:20 WBC 5.0 RBC 3.74 Hgb 11.0 L Hct 32.5 L MCV 87 MCH 29.3 MCHC 33.8 RDW 15.0 H Plt Count 337 Urine Color YELLOW Urine Appearance SLIGHTLY-CLOUDY Urine pH 5.0 Ur Specific [place] 1.017 Urine Protein 30 H Urine Glucose (UA) NEGATIVE Urine Ketones NEGATIVE Urine Blood SMALL H Urine Nitrite NEGATIVE Ur Leukocyte Esterase MODERATE H Urine WBC (Auto) 5 Urine RBC (Auto) 4 01/14/20 11:58 Blood Blood Culture - Final NO GROWTH IN 5 DAYS 01/14/20 07:15 Blood Blood Culture - Final NO GROWTH IN 5 DAYS Impressions: Chest X-Ray 01/14/20 07:18 IMPRESSION: Patchy left basilar airspace disease worrisome for pneumonia Assessment and Plan - Diagnosis (1) COVID-19 Is this a current diagnosis for this admission?: Yes (2) Left lower lobe pneumonia Qualifiers: Pneumonia type: due to unspecified organism Qualified Code(s): J18.9 - Pneumonia, unspecified organism Is this a current diagnosis for this admission?: Yes (3) Acute respiratory failure with hypoxia Is this a current diagnosis for this admission?: Yes (4) Hyperlipidemia Is this a current diagnosis for this admission?: Yes (5) Hypertension Is this a current diagnosis for this admission?: Yes (6) Person under investigation for COVID-19 Is this a current diagnosis for this admission?: Yes - Plan Summary Summary: 01/18/2020 Covid pneumonia with respiratory failure hypoxia-continues to improve. Will receive convalescent plasma today. She has had azithromycin. Continue supplements. Completing remdesivir as well. Continue to wean oxygen as t olerated. Fine rales at bases could indicate post Covid changes that will be chronic. Will monitor. Continue current antihypertensive regimen, atorvastatin and cardiac diet. 01/19/2020 Respiratory failure with Covid pneumonia-still on nasal cannula. Still with limited exercise tolerance. Completing remdesivir. Still with fine Velcro rales. Reviewed use of incentive spirometer with the patient. I did change the Decadron to 4 mg twice daily to see if this makes any difference. Hypertension-the patient has had a positive fluid balance but she is back on her antihypertensive regimen including hydrochlorothiazide. We will continue to monitor. Continue cardiac diet, daily aspirin as well as atorvastatin. IV access-the patient lost IV access. 1 dose of remdesivir was delayed. PICC line has been placed so that we can complete therapy as well as have consistent access for blood tests. - Time Time Spent with patient: 15-24 minutes Medications reviewed and adjusted accordingly: Yes Anticipated Discharge Disposition: Home with Home Health Anticipated Discharge Timeframe: Unknown
[2020-01-19] MEDS: DEXAMETHASONE SOD PHOSPHATE INJ 4 MG/1 ML VIAL IV SCH (21:15)
[2020-01-19] MEDS: ATORVASTATIN CALCIUM 40 MG TABLET PO SCH (21:16)
[2020-01-20] MEDS: ALBUTEROL SULFATE 0.083% NEB 2.5 MG/3 ML AMPUL NEB SCH ×4 (02:25→20:15)
[2020-01-20 06:27] LABS: ABSOLUTE LYMPHOCYTES (AUTO) 0.5 10^3/uL (0.5-4.7); ABSOLUTE MONOCYTES (AUTO) 0.1 10^3/uL (0.1-1.4); ABSOLUTE NEUT (AUTO) 5.3 10^3/uL (1.7-8.2); BASOPHILS % (AUTO) 0.7 % (0-2); EOSINOPHILS % (AUTO) 0.1 % (0-6); HEMATOCRIT 33.5 % (36.0-47.0); HEMOGLOBIN 11.5 g/dL (12.0-15.5); MEAN CORPUSCULAR HEMOGLOBIN 29.5 pg (27.0-33.4); MEAN CORPUSCULAR HGB CONC 34.4 g/dL (32.0-36.0); MEAN CORPUSCULAR VOLUME 86 fl (80-97); MONOCYTES % (AUTO) 1.9 % (3-13); PLATELET COUNT 355 10^3/uL (150-450); RED BLOOD COUNT 3.91 10^6/uL (3.72-5.28); RED CELL DISTRIBUTION WIDTH 15.2 % (11.5-14.0); SEGMENTED NEUTROPHILS % (AUTO) 88.3 % (42-78); TOTAL CELLS COUNTED % (AUTO) 100 %
[2020-01-20 06:54] LABS: ANION GAP 11 (5-19); BLOOD UREA NITROGEN 26 mg/dL (7-20); C-REACTIVE PROTEIN 85.1 mg/L (<10.0); CALCIUM 8.7 mg/dL (8.4-10.2); CARBON DIOXIDE 27 mmol/L (22-30); CHLORIDE 103 mmol/L (98-107); GLUCOSE 230 mg/dL (75-110); POTASSIUM 3.4 mmol/L (3.6-5.0)
--- NOTE | 2020-01-20 07:54 | RADIOLOGY REPORT (SQ) ---
EXAM DESCRIPTION: PICC INSERTION IMAGES COMPLETED DATE/TIME: 01/19/2020 4:33 pm REASON FOR STUDY: Consistency, unable to obtain IV access COMPARISON: None. FLUOROSCOPY TIME: 0.6 minutes of fluoroscopy was used. 1 images saved to PACS. TECHNIQUE: Fluoroscopic and ultrasound guided PICC placement. LIMITATIONS: None. PROCEDURE: After written consent and assessment were obtained, the patient was brought into the fluo roscopy room and placed supine on the table. Ultrasound evaluation of potential access sites were per formed. After successfully identifying a patent left all, the left arm was prepped and draped in a st erile fashion along with the ultrasound probe. The entry site was anesthetized with 1% lidocaine. A 2 1 gauge 7 cm needle was advanced through the skin and into the basilic vein under live ultrasound nicolle dance. An ultrasound image was saved to PACS confirming access site. A .018 guide wire was then ins erted through the needle and into the venous system. The needle was then removed and an 11 blade scal pel was used to make a 1cm skin incision. A 5 fr peel-away sheath was advanced over the wire and int o the venous system. A measurement was then made using the existing wire and live fluoroscopic guidan ce. The wire was then removed and trimmed. The PICC was advanced through the peel-away sheath and int o the venous system. The peel-away sheath was removed and the catheter was adhered to the patients ar m with a stat lock. The catheter was then aspirated and flushed and a sterile bandage was placed over the access site. A fluoroscopic spot image was saved to PACS confirming the catheter tip within the superior vena cava. IMPRESSION: SUCCESSFUL PLACEMENT OF A 5 FR DUAL LUMEN 35 CM PICC IN THE LEFT BASILIC VEIN. COMMENT: Patient medication list reviewed: Yes- Quality ID# [id number]:Eligible professional attests to doc umenting in the medical record they obtained, updated, or reviewed the patient's current medications. . Quality ID 145: Final reports for procedures using fluoroscopy that document radiation exposure fredo francisco, or exposure time and number of fluorographic images (if radiation exposure indices are not avail able) Quality ID #76: The patient was prepped and draped using maximum sterile barrier technique including cap, mask, sterile gown, sterile gloves, a large sterile sheet, hand hygiene, and 2% Chlorhexidine fo r cutaneous antisepsis. When ultrasound is used, sterile ultrasound techniques are followed requiring sterile gel and sterile probes. TECHNICAL DOCUMENTATION: JOB ID: [id number] 2010 [employer]- All Rights Reserved rev-08/08 Reading location - IP/workstation name: [id number]
[2020-01-20] MEDS: ENOXAPARIN SODIUM INJ 80 MG/0.8 ML DISP.SYRIN SUBCUT SCH ×2 (10:01→21:40)
[2020-01-20] MEDS: REMDESIVIR (EUA) 100 MG in NORMAL SALINE 250 ML IV SCH (10:01)
[2020-01-20] MEDS: GUAIFENESIN 600 MG TABLET.SA PO SCH ×2 (10:03→21:40)
[2020-01-20] MEDS: FAMOTIDINE 20 MG TABLET PO SCH ×2 (10:03→21:40)
[2020-01-20] MEDS: HYDROCHLOROTHIAZIDE 25 MG TABLET PO SCH ×2 (10:03→10:33)
[2020-01-20] MEDS: ASPIRIN 81 MG TABLET, ENT COATED PO SCH (10:03)
[2020-01-20] MEDS: ZINC SULFATE 220 MG CAPSULE PO SCH (10:03)
[2020-01-20] MEDS: DEXAMETHASONE SOD PHOSPHATE INJ 4 MG/1 ML VIAL IV SCH ×2 (10:04→21:40)
[2020-01-20] MEDS: ASCORBIC ACID 500 MG TABLET PO SCH ×2 (10:04→17:40)
[2020-01-20] MEDS: CHOLECALCIFEROL (D3) 1,000 UNIT (25 MCG) TABLET PO SCH (10:04)
[2020-01-20] MEDS: ATENOLOL 50 MG TABLET PO SCH (10:04)
[2020-01-20] MEDS: REMDESIVIR (EUA) 100 MG in NORMAL SALINE 250 ML IV ONE (15:27)
[2020-01-20] MEDS ORDERED: NORMAL SALINE 10 ML SDV (AFTER EACH USE) IV PRN (17:30)
--- NOTE | 2020-01-20 18:00 | PDOC PROGRESS REPORT ---
Subjective Progress Note for:: 01/20/20 Subjective:: Patient is maintaining adequate saturation on 3 L nasal cannula. She still gets short of breath walking to the bathroom but it seems better than yesterday. She has several questions about going home including the fact that her family is on quarantine and she reported to me that if she goes home it well avoid the timeframe of the quarantine with regard to her daughter going back to work. Reason For Visit: PNEUMONIA Physical Exam Vital Signs: Temp Pulse Resp BP Pulse Ox 97.9 F 76 16 148/57 H 97 01/20/20 11:24 01/20/20 14:20 01/20/20 14:20 01/20/20 11:24 01/20/20 14:20 Pulse Oximeter Continuous Start: 01/14/20 09:4 9 Freq: RTQ4 Status: Active Protocol: Document 01/20/20 09:24 J (Rec: 01/20/20 09:26 [id number]) Pulse Oximetry Assessment Oxygen Saturation (92-100) 97 Oxygen Flow Rate (L/min) 2 Oxygen Delivery Method Nasal Cannula Equipment Usage Equipment in Use Continuous SpO2 Machine # 2 Intake & Output 01/19/20 01/20/20 01/21/20 06:59 06:59 06:59 Intake Total 1492 400 250 Output Total 0 400 Balance 1492 0 250 Weight 64.9 kg 65.8 kg General appearance: PRESENT: no acute distress, cooperative, well-developed Respiratory exam: PRESENT: rales - Fine rales bilaterally. Improved from yesterday., symmetrical, unlabored. ABSENT: rhonchi, tachypnea, wheezes Cardiovascular exam: PRESENT: RRR, +S1, +S2. ABSENT: bradycardia, diastolic murmur, irregular rhythm, systolic murmur, tachycardia GI/Abdominal exam: PRESENT: normal bowel sounds, soft. ABSENT: distended, guarding, tenderness Extremities exam: ABSENT: joint swelling, pedal edema Musculoskeletal exam: PRESENT: ambulatory, normal inspection. ABSENT: deformity, dislocation Neurological exam: PRESENT: alert, awake, oriented to person, oriented to place, oriented to time, oriented to situation, CN II-XII grossly intact. ABSENT: altered Psychiatric exam: PRESENT: appropriate affect. ABSENT: agitated, anxious Focused psych exam: ABSENT: delusional, paranoid, restlessness Results Laboratory Results: 01/20/20 05:15 10/29/20 05:15 01/20/20 01/20/20 05:15 05:15 WBC 6.0 RBC 3.91 Hgb 11.5 L Hct 33.5 L MCV 86 MCH 29.5 MCHC 34.4 RDW 15.2 H Plt Count 355 Seg Neutrophils % 88.3 H Sodium 140.5 Potassium 3.4 L Chloride 103 Carbon Dioxide 27 Anion Gap 11 BUN 26 H Creatinine 0.69 Est GFR ( Amer) > 60 Glucose 230 H Calcium 8.7 C-Reactive Protein 85.1 H Impressions: Chest X-Ray 01/14/20 07:18 IMPRESSION: Patchy left basilar airspace disease worrisome for pneumonia PICC Line Insertion 01/19/20 00:00 IMPRESSION: SUCCESSFUL PLACEMENT OF A 5 FR DUAL LUMEN 35 CM PICC IN THE LEFT BASILIC VEIN. Assessment and Plan - Diagnosis (1) COVID-19 Is this a current diagnosis for this admission?: Yes (2) Left lower lobe pneumonia Qualifiers: Pneumonia type: due to unspecified organism Qualified Code(s): J18.9 - Pneumonia, unspecified organism Is this a current diagnosis for this admission?: Yes (3) Acute respiratory failure with hypoxia Is this a current diagnosis for this admission?: Yes (4) Hyperlipidemia Is this a current diagnosis for this admission?: Yes (5) Hypertension Is this a current diagnosis for this admission?: Yes (6) Person under investigation for COVID-19 Is this a current diagnosis for this admission?: Yes - Plan Summary Summary: 01/18/2020 Covid pneumonia with respiratory failure hypoxia-continues to improve. Will receive convalescent plasma today. She has had azithromycin. Continue supplements. Completing remdesivir as well. Continue to wean oxygen as tolerated. Fine rales at bases could indicate post Covid changes that will be chronic. Will monitor. Continue current antihypertensive regimen, atorvastatin and cardiac diet. 01/19/2020 Respiratory failure with Covid pneumonia-still on nasal cannula. Still with limited exercise tolerance. Completing remdesivir. Still with fine Velcro rales. Reviewed use of incentive spirometer with the patient. I did change the Decadron to 4 mg twice daily to see if this makes any difference. Hypertension-the patient has had a positive fluid balance but she is back on her antihypertensive regimen including hydrochlorothiazide. We will continue to monitor. Continue cardiac diet, daily aspirin as well as atorvastatin. IV access-the patient lost IV access. 1 dose of remdesivir was delayed. PICC line has been placed so that we can complete therapy as well as have consistent access for blood tests. 01/20/2020 The patient's bilateral basal rales are slightly improved. I feel that this will be a post Covid chronic issue that may take many months to resolve if it resolves at all. I have ordered oxygen for discharge to home. Anticipated discharge is tomorrow. Reasonable blood pressure control. Continue current medications and treatments as ordered. Continue to taper oxygen if possible. The patient has concerns regarding discharge home. Her family is on quarantine due to her Covid positive status. Evidently when she goes home this could void the initial quarantine and possibly prohibit her daughter from returning to work. I have asked discharge planning to help navigate the situation. - Time Time Spent with patient: 15-24 minutes Medications reviewed and adjusted accordingly: Yes Anticipated Discharge Disposition: Home with Home Health Anticipated Discharge Timeframe: within 48 hours
[2020-01-20] MEDS: ATORVASTATIN CALCIUM 40 MG TABLET PO SCH (21:40)
[2020-01-20] MEDS: NORMAL SALINE 10 ML SDV (SCHEDULED) IV SCH (21:41)
[2020-01-21] MEDS: ALBUTEROL SULFATE 0.083% NEB 2.5 MG/3 ML AMPUL NEB SCH ×3 (02:45→14:30)
[2020-01-21 05:00] LABS: HEMATOCRIT 31.8 % (36.0-47.0); HEMOGLOBIN 10.6 g/dL (12.0-15.5); MEAN CORPUSCULAR HGB CONC 33.4 g/dL (32.0-36.0); MEAN CORPUSCULAR VOLUME 87 fl (80-97); PLATELET COUNT 356 10^3/uL (150-450); RED BLOOD COUNT 3.67 10^6/uL (3.72-5.28); RED CELL DISTRIBUTION WIDTH 15.2 % (11.5-14.0)
[2020-01-21 05:10] LABS: APPEARANCE,URINE SLIGHTLY-CLOUDY; BILIRUBIN,URINE NEGATIVE (NEGATIVE); COLOR,URINE YELLOW; GLUCOSE, URINE NEGATIVE (NEGATIVE); KETONES,URINE NEGATIVE (NEGATIVE); LEUKOCYTE ESTERASE,URINE SMALL (NEGATIVE); NITRITE,URINE NEGATIVE (NEGATIVE); PROTEIN,URINE 30 mg/dL (NEGATIVE); URINE SPECIFIC GRAVITY 1.027
[2020-01-21] MEDS ORDERED: BISACODYL 5 MG TABEC PO ONE (09:30)
[2020-01-21] MEDS: ASCORBIC ACID 500 MG TABLET PO SCH (09:34)
[2020-01-21] MEDS: GUAIFENESIN 600 MG TABLET.SA PO SCH (09:34)
[2020-01-21] MEDS: HYDROCHLOROTHIAZIDE 25 MG TABLET PO SCH (09:34)
[2020-01-21] MEDS: DEXAMETHASONE SOD PHOSPHATE INJ 4 MG/1 ML VIAL IV SCH (09:34)
[2020-01-21] MEDS: ATENOLOL 50 MG TABLET PO SCH (09:34)
[2020-01-21] MEDS: ZINC SULFATE 220 MG CAPSULE PO SCH (09:34)
[2020-01-21] MEDS: ENOXAPARIN SODIUM INJ 80 MG/0.8 ML DISP.SYRIN SUBCUT SCH (09:34)
[2020-01-21] MEDS: CHOLECALCIFEROL (D3) 1,000 UNIT (25 MCG) TABLET PO SCH (09:34)
[2020-01-21] MEDS: FAMOTIDINE 20 MG TABLET PO SCH (09:34)
[2020-01-21] MEDS: ASPIRIN 81 MG TABLET, ENT COATED PO SCH (09:34)
[2020-01-21] MEDS: NORMAL SALINE 10 ML SDV (SCHEDULED) IV SCH (09:36)
[2020-01-21] MEDS ORDERED: POLYETHYLENE GLYCOL 3350 POWDER 17 GM/1 PACKET PO SCH (10:00)
--- NOTE | 2020-01-21 10:51 | PDOC DISCHARGE SUMMARY ---
Impression - Admit/DC Date/PCP Admission Date/Primary Care Provider: 01/14/20 09:39 SUSANNA RICHMOND Discharge Date: 01/21/20 - Discharge Diagnosis (1) COVID-19 Is this a current diagnosis for this admission?: Yes (2) Left lower lobe pneumonia Is this a current diagnosis for this admission?: Yes (3) Acute respiratory failure with hypoxia Is this a current diagnosis for this admission?: Yes (4) Hyperlipidemia Is this a current diagnosis for this admission?: Yes (5) Hypertension Is this a current diagnosis for this admission?: Yes (6) Person under investigation for COVID-19 Is this a current diagnosis for this admission?: Yes - Assessment Summary: 01/18/2020 Covid pneumonia with respiratory failure hypoxia-continues to improve. Will receive convalescent plasma today. She has had azithromycin. Continue supplements. Completing remdesivir as well. Continue to wean oxygen as tolerated. Fine rales at bases could indicate post Covid changes that will be chronic. Will monitor. Continue current antihypertensive regimen, atorvastatin and cardiac diet. 01/19/2020 Respiratory failure with Covid pneumonia-still on nasal cannula. Still with li mited exercise tolerance. Completing remdesivir. Still with fine Velcro rales. Reviewed use of incentive spirometer with the patient. I did change the Decadron to 4 mg twice daily to see if this makes any difference. Hypertension-the patient has had a positive fluid balance but she is back on her antihypertensive regimen including hydrochlorothiazide. We will continue to monitor. Continue cardiac diet, daily aspirin as well as atorvastatin. IV access-the patient lost IV access. 1 dose of remdesivir was delayed. PICC line has been placed so that we can complete therapy as well as have consistent access for blood tests. 01/20/2020 The patient's bilateral basal rales are slightly improved. I feel that this will be a post Covid chronic issue that may take many months to resolve if it re solves at all. I have ordered oxygen for discharge to home. Anticipated discharge is tomorrow. Reasonable blood pressure control. Continue current medications and treatments as ordered. Continue to taper oxygen if possible. The patient has concerns regarding discharge home. Her family is on quarantine due to her Covid positive status. Evidently when she goes home this could void the initial quarantine and possibly prohibit her daughter from returning to work. I have asked discharge planning to help navigate the situation. - Additional Information Resuscitation Status: Full Code Referrals: [facility] [Outside] [facility] [Outside] CLEOPATRA BERMUDEZ FNP [Primary Care Provider] - Follow up as needed Prescriptions: Prednisone [Deltasone 10 mg Tablet] 10 mg PO ASDIR PRN #21 tablet PRN Reason: Prednisone [Deltasone 10 mg Tablet] 10 mg PO ASDIR PRN 20 Days #34 tablet PRN Reason: Albuterol Sulfate [Ventolin 0.083% Neb 2.5 mg/3 mL Ampul] 2.5 mg NEB QID 30 Days #120 vial.neb Home Medications: Atenolol [Tenormin 50 mg Tablet] 50 mg PO DAILY 03/07/13 Hydrochlorothiazide 25 each PO DAILY 03/07/13 Ondansetron [Zofran Odt 4 mg Tablet] 4 mg PO Q8 01/14/20 Rosuvastatin Calcium [Crestor] 20 mg PO DAILY 01/14/20 Albuterol Sulfate [Ventolin 0.083% Neb 2.5 mg/3 mL Ampul] 2.5 mg NEB QID 30 Days #120 vial.neb 01/21/20 Ascorbic Acid [Vitamin C 500 mg Tablet] 500 mg PO BID tablet 01/21/20 Aspirin [Ecotrin 81 mg EC Tablet] 81 mg PO DAILY tabec 01/21/20 Cholecalciferol (Vitamin D3) [Vitamin D3 1000 Unit Tablet] 2,000 unit PO DAILY tablet 01/21/20 Polyethylene Glycol 3350 [Miralax Powder 17 gm/Packet] 17 gm PO DAILY powd.pack 01/21/20 Prednisone [Deltasone 10 mg Tablet] 10 mg PO ASDIR PRN #21 tablet 01/21/20 Prednisone [Deltasone 10 mg Tablet] 10 mg PO ASDIR PRN 20 Days #34 tablet 01/21/20 Zinc Sulfate [Zinc-220 Capsule] 220 mg PO DAILY capsule 01/21/20 History of Present Illiness History of Present Illness: NIRMALA STEINBERG is a 69 year old female with a past medical history significant for hypertension, hyperlipidemia, and obesity who presented to the emergency department today via EMS for complaint of sudden onset shortness of breath. Per EMS, the patient was found to be hypoxic with an oxygen saturation in the mid 70s on room air. Patient was recently seen by her primary care provider for initial complaint of left ear pain (now resolved). She was initially placed on amoxicillin but then changed to azithromycin after pain persisted. She has completed a full Z-Kvng. Patient denies fevers at home. She does admit to fatigue but otherwise stated that she felt well until last night when she had a sudden onset of shortness of breath. Evaluation in the emergency department revealed (101.3), hypertension, tachypnea, and hypoxia. CBC unremarkable, chemistry revealed mild acute kidney injury and mildly elevated LFTs, urinalysis revealed proteinuria but without evidence of UTI. Influenza negative. D-dimer elevated 1.01, ferritin 299, CRP 184. Chest x-ray demonstrated patchy left basilar airspace disease worrisome for pneumonia. Patient was provided Tylenol LR bolus, and Levaquin. She is referred to the hospitalist service for further evaluation and management of the above-stated complaints and findings. Hospital Course Hospital Course: Extended hospital course. Received antibiotics, remdesivir and supplements. Oxygen requirements remained high but eventually began to taper. Her appetite and energy level slowly returned. See above for greater detail. Will discharge home on oxygen 3 L/min as well as continue her nebulizer treatments. Physical Exam Vital Signs: Temp Pulse Resp BP Pulse Ox 97.6 F 64 16 131/61 H 93 01/21/20 03:41 01/21/20 08:35 01/21/20 08:35 01/21/20 03:41 01/21/20 08:35 Pulse Oximeter Continuous Start: 01/14/20 09:49 Freq: RTQ4 Status: Active Protocol: Document 01/21/20 08:[address] [facility] (Rec: 01/21/20 10:[address] [facility] [id number]) Pulse Oximetry Assessment Equipment Usage Equipment Standby Continuous SpO2 Machine # 2 Intake & Output 01/20/20 01/21/20 01/22/20 06:59 06:59 06:59 Intake Total 400 370 Output Total 400 350 Balance 0 20 Weight 65.8 kg 65.5 kg General appearance: PRESENT: no acute distress, cooperative, well-developed, other - Just finished a nebulizer treatment Head exam: PRESENT: atraumatic, normocephalic, other - Alopecia Respiratory exam: PRESENT: rales - Fine rales bilateral bases, symmetrical, unlabored. ABSENT: rhonchi, tachypnea, wheezes Cardiovascular exam: PRESENT: RRR, +S1, +S2. ABSENT: bradycardia, diastolic murmur, irregular rhythm, systolic murmur, tachycardia GI/Abdominal exam: PRESENT: normal bowel sounds, soft. ABSENT: tenderness Extremities exam: ABSENT: pedal edema Neurological exam: PRESENT: alert, awake, oriented to person, oriented to place, oriented to time, oriented to situation, CN II-XII grossly intact. ABSENT: altered Psychiatric exam: PRESENT: appropriate affect. ABSENT: agitated, anxious Focused psych exam: ABSENT: delusional, paranoid, restlessness Results Laboratory Results: WBC 8.0 10^3/uL (4.0-10.5) 01/21/20 04:30 RBC 3.67 10^6/uL (3.72-5.28) L 01/21/20 04:30 Hgb 10.6 g/dL (12.0-15.5) L 01/21/20 04:30 Hct 31.8 % (36.0-47.0) L 01/21/20 04:30 MCV 87 fl (80-97) 01/21/20 04:30 MCH 29.0 pg (27.0-33.4) 01/21/20 04:30 MCHC 33.4 g/dL (32.0-36.0) 01/21/20 04:30 RDW 15.2 % (11.5-14.0) H 01/21/20 04:30 Plt Count 356 10^3/uL (150-450) 01/21/20 04:30 Lymph % (Auto) 9.0 % (13-45) L 01/20/20 05:15 Reagan % (Auto) 1.9 % (3-13) L 01/20/20 05:15 Eos % (Auto) 0.1 % (0-6) 01/20/20 05:15 Baso % (Auto) 0.7 % (0-2) 01/20/20 05:15 Absolute Neuts (auto) 5.3 10^3/uL (1.7-8.2) 01/20/20 05:15 Absolute Lymphs (auto) 0.5 10^3/uL (0.5-4.7) 01/20/20 05:15 Absolute Monos (auto) 0.1 10^3/uL (0.1-1.4) 01/20/20 05:15 Absolute Eos (auto) 0.0 10^3/uL (0.0-0.6) 01/20/20 05:15 Absolute Basos (auto) 0.0 10^3/uL (0.0-0.2) 01/20/20 05:15 Total Counted 100 01/16/20 17:55 Seg Neutrophils % 88.3 % (42-78) H 01/20/20 05:15 Seg Neuts % (Manual) 88 % (42-78) H 01/16/20 17:55 Lymphocytes % (Manual) 7 % (13-45) L 01/16/20 17:55 Atypical Lymphs % 1 % (0) 01/16/20 17:55 Monocytes % (Manual) 4 % (3-13) 01/16/20 17:55 Eosinophils % (Manual) 0 % (0-6) 01/16/20 17:55 Basophils % (Manual) 0 % (0-2) 01/16/20 17:55 Abs Neuts (Manual) 6.9 10^3/uL (1.7-8.2) 01/16/20 17:55 Abs Lymphs (Manual) 0.6 10^3/uL (0.5-4.7) 01/16/20 17:55 Abs Monocytes (Manual) 0.3 10^3/uL (0.1-1.4) 01/16/20 17:55 Absolute Eos (Manual) 0.0 10^3/uL (0.0-0.6) 01/16/20 17:55 Abs Basophils (Manual) 0.0 10^3/uL (0.0-0.2) 01/16/20 17:55 Platelet Comment ADEQUATE 01/16/20 17:55 Anisocytosis SLIGHT 01/16/20 17:55 Ovalocytes SLIGHT 01/16/20 17:55 PT 14.2 SEC (11.4-15.4) 01/14/20 11:58 INR 1.08 01/14/20 11:58 D-Dimer 0.77 ug/mL (0.00-0.50) H 01/20/20 05:15 VBG pH 7.44 (7.30-7.42) H 01/14/20 07:15 VBG pCO2 33.8 mmHg (35-63) L 01/14/20 07:15 VBG HCO3 22.3 mmol/L (20-32) 01/14/20 07:15 VBG Base Excess -1.3 mmol/L 01/14/20 07:15 Sodium 140.5 mmol/L (137-145) 01/20/20 05:15 Potassium 3.4 mmol/L (3.6-5.0) L 01/20/20 05:15 Chloride 103 mmol/L (98-107) 01/20/20 05:15 Carbon Dioxide 27 mmol/L (22-30) 01/20/20 05:15 Anion Gap 11 (5-19) 01/20/20 05:15 BUN 26 mg/dL (7-20) H 01/20/20 05:15 Creatinine 0.69 mg/dL (0.52-1.25) 01/20/20 05:15 Est GFR ( Amer) > 60 (>60) 01/20/20 05:15 Est GFR (MDRD) Non-Af > 60 (>60) 01/20/20 05:15 Glucose 230 mg/dL (75-110) H 01/20/20 05:15 Lactic Acid 1.1 mmol/L (0.7-2.1) 01/14/20 14:20 Calcium 8.7 mg/dL (8.4-10.2) 01/20/20 05:15 Ferritin 299.00 ng/mL (11.1-264.0) H 01/14/20 11:58 Total Bilirubin 1.5 mg/dL (0.2-1.3) H 01/14/20 07:15 Direct Bilirubin 0.6 mg/dL (0.0-0.4) H 01/14/20 07:15 Neonat Total Bilirubin Not Reportable 01/14/20 07:15 Neonat Direct Bilirubin Not Reportable 01/14/20 07:15 Neonat Indirect Bili Not Reportable 01/14/20 07:15 AST 60 U/L (14-36) H 01/14/20 07:15 ALT 23 U/L (<35) 01/14/20 07:15 Alkaline Phosphatase 96 U/L (38-126) 01/14/20 07:15 C-Reactive Protein 85.1 mg/L (<10.0) H 01/20/20 05:15 Total Protein 7.7 g/dL (6.3-8.2) 01/14/20 07:15 Albumin 4.1 g/dL (3.5-5.0) 01/14/20 07:15 Urine Color YELLOW 01/21/20 04:30 Urine Appearance SLIGHTLY-CLOUDY 01/21/20 04:30 Urine pH 5.0 (5.0-9.0) 01/21/20 04:30 Ur Specific [place] 1.027 01/21/20 04:30 Urine Protein 30 mg/dL (NEGATIVE) H 01/21/20 04:30 Urine Glucose (UA) NEGATIVE mg/dL (NEGATIVE) 01/21/20 04:30 Urine Ketones NEGATIVE mg/dL (NEGATIVE) 01/21/20 04:30 Urine Blood NEGATIVE (NEGATIVE) 01/21/20 04:30 Urine Nitrite NEGATIVE (NEGATIVE) 01/21/20 04:30 Urine Nitrite (Reflex) NEGATIVE (NEGATIVE) 01/14/20 07:48 Urine Bilirubin NEGATIVE (NEGATIVE) 01/21/20 04:30 Urine Urobilinogen 2.0 mg/dL (<2.0) H 01/21/20 04:30 Ur Leukocyte Esterase SMALL (NEGATIVE) H 01/21/20 04:30 Leukocyte Esterase Rfl SMALL (NEGATIVE) H 01/14/20 07:48 Urine WBC (Auto) 2 /HPF 01/21/20 04:30 Urine RBC (Auto) 3 /HPF 01/21/20 04:30 U Hyaline Cast (Auto) 9 /LPF 01/19/20 11:20 Urine Bacteria (Auto) TRACE /HPF 01/21/20 04:30 Urine WBC (Reflex) 14 /HPF 01/14/20 07:48 Squamous Epi Cells Auto 2 /HPF 01/21/20 04:30 Urine Mucus (Auto) RARE /LPF 01/21/20 04:30 Urine Ascorbic Acid 40 (NEGATIVE) H 01/21/20 04:30 COVID-19 Source See comment 01/14/20 09:48 COVID-19 (IGLESIA) DETECTED (Not Detect) A 01/14/20 09:48 Influenza A (Rapid) NEGATIVE (NEGATIVE) 01/14/20 09:48 Influenza B (Rapid) NEGATIVE (NEGATIVE) 01/14/20 09:48 Blood Type A POSITIVE 01/16/20 17:55 Antibody Screen NEGATIVE 01/16/20 17:55 Impressions: Chest X-Ray 01/14/20 07:18 IMPRESSION: Patchy left basilar airspace disease worrisome for pneumonia PICC Line Insertion 01/19/20 00:00 IMPRESSION: SUCCESSFUL PLACEMENT OF A 5 FR DUAL LUMEN 35 CM PICC IN THE LEFT BASILIC VEIN. Plan Health Concerns: Possible permanent changes post Covid pneumonia Plan of Treatment: Discharge on oxygen. Continue to taper off as tolerated. Goals: Long-term recovery from Covid pneumonia Time Spent: Greater than 30 Minutes Stroke Is this a Stroke Patient?: No Acute Heart Failure Is this a Heart Failure Patient?: No
[2020-01-21 17:38] VITALS: BP 114/75
== END 2020-01-21 18:00 | disposition home health service (06) | DRG 177 ==
LOC: ER 07:00 → EH 09:39 → 3N 11:00
PROVIDERS: ADMIT Hospitalist; ATTEND Hospitalist
PROC: XW033E5 Introduction of Remdesivir Anti-infective into Peripheral Vein, Percutaneous Approach, New Technology Group 5 (ICD-10-PCS; 2020-01-16)
PROC: XW13325 Transfusion of Convalescent Plasma (Nonautologous) into Peripheral Vein, Percutaneous Approach, New Technology Group 5 (ICD-10-PCS; 2020-01-18)
PROC: 02HV33Z Insertion of Infusion Device into Superior Vena Cava, Percutaneous Approach (ICD-10-PCS; principal; 2020-01-19)
PROC: B548ZZA Ultrasonography of Superior Vena Cava, Guidance (ICD-10-PCS; 2020-01-19)
PROC: B518ZZA Fluoroscopy of Superior Vena Cava, Guidance (ICD-10-PCS; 2020-01-19)
PROC: XW033E5 Introduction of Remdesivir Anti-infective into Peripheral Vein, Percutaneous Approach, New Technology Group 5 (ICD-10-PCS; 2020-01-20)
DX: U07.1 COVID-19 (principal); J96.01 Acute respiratory failure with hypoxia; J12.89 Other viral pneumonia; E78.5 Hyperlipidemia, unspecified; I10 Essential (primary) hypertension; E66.9 Obesity, unspecified; Z79.899 Other long term (current) drug therapy
CPT/HCPCS: 36415; 36430; 36573; 71045; 80048; 80053; 81001; 82728; 82803; 83605; 85025; 85027; 85379; 85610; 86140; 86850; 86900; 86901; 87040; 87070; 87205; 87635; 87804; 93005; 93010; 94762; 94799; 96360; 99285; C9803; J1100; J1642; J1650; J1956; J3490; J7030; J7050; J7120; J7613